=== PATIENT | male | born 1970 | race African-American/Black ===

== ENCOUNTER 2019-03-03 17:15 | Emergency (ER) | payer OTHER ==
[2019-03-03 17:20] VITALS: BMI 27.1
--- NOTE | 2019-03-03 17:51 | PDOC ---
Documentation entered by [place] River SCRIBE, acting as scribe for Angelina Shine MD. Angelina Shine MD: This documentation has been prepared by the Perico alicia Daniel, SCRIBE, under my direction and personally reviewed by me in its entirety. I confirm that the documentation accurately reflects all work, treatment, procedures, and medical decision making performed by me. History of Present Illness - General Chief Complaint: Blood Pressure Problem Stated Complaint: HYPERTENSION ( SENT FROM [facility]) Time Seen by Provider: 03/03/19 17:46 Past History - Past Medical History Allergies/Adverse Reactions: Allergies Allergy/AdvReac Type Severity Reaction Status Date / Time No Known Allergies Allergy Verified 03/03/19 17:20 Home Medications: Ambulatory Orders Metoprolol Succinate 25 mg PO DAILY 03/03/19 COPD: No HTN: Yes (NON COMPLIANT) - Psycho Social/Smoking Cessation Hx Smoking History: Never smoked *Physical Exam - Vital Signs Last Vital Signs Temp Pulse Resp BP Pulse Ox 97.5 F L 86 18 177/105 H 98 03/03/19 17:17 03/03/19 17:17 03/03/19 17:17 03/03/19 17:17 03/03/19 17:17 ED Treatment Course - LABORATORY CBC & Chemistry Diagram: 03/03/19 18:10 03/03/19 18:10 Discharge - Discharge Information Problems reviewed: Yes Clinical Impression/Diagnosis: Hypertension Qualifiers: Hypertension type: unspecified Qualified Code(s): I10 - Essential (primary) hypertension Condition: Stable Disposition: HOME - Follow up/Referral Referrals: Chas Arevalo MD [Staff Physician] - - Patient Discharge Instructions Patient Printed Discharge Instructions: DI for High Blood Pressure Additional Instructions: 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 If you experience any new, worsening, or concerning symptoms, please return to the emergency department. - Post Discharge Activity
[2019-03-03] MEDS ORDERED: ACETAMINOPHEN 500 MG TABLET (FP) PO ONE (18:12)
--- NOTE | 2019-03-03 18:24 | PDOC ---
Documentation entered by [place] SCRIBE, acting as scribe for Angelina Shine MD. Angelina Shine MD: This documentation has been prepared by the Perico alicia Daniel, SCRIBE, under my direction and personally reviewed by me in its entirety. I confirm that the documentation accurately reflects all work, treatment, procedures, and medical decision making performed by me. Attending Attestation - Resident Resident Name: Katia Wilkerson - ED Attending Attestation I have performed the following: I have examined & evaluated the patient, The case was reviewed & discussed with the resident, I agree w/resident's findings & plan, Exceptions are as noted - HPI HPI: 03/03/19 18:19 This 48-year-old male who has a long history of high blood pressure but is noncompliant with his medications noted his blood pressure to be 170/120 today and went to [facility] Also he notes that he has a history of a pituitary tumor and has not had that followed for the past year He was on metoprolol but has not filled the prescription for the past year 03/03/19 18:29 The patient is a 48 year old male with a past medical history of HTN (non compliant with meds) here today for evaluation of elevated blood pressure. The patient was sent from [facility] for a blood pressure of 170 systolic. Patient states that he ran out of his HTN medication 1 year ago and did not get it refilled. Patient currently complains of a right sided headache which he attributes to his humidifier being off and notes prior headaches due to this. Patient also reports that he has a pituitary mass which was diagnosed 2 years ago but has not followed up on it in the past year. Patient denies lightheadedness. Denies fever, chills. Denies chest pain, shortness of breath. Denies nausea, vomiting, diarrhea, abdominal pain. Allergies: NKA Social history: Denies tobacco, alcohol, or illicit drug use - Physicial Exam PE: 03/03/19 18:42 wnwd 48 yo male in no acute distress head ncat eyes sangeeta eomi neck supple lungs cta b/l cvs [id number] abdomen nontender skin warm and dry no flank pain neuro axox3,ambulatory - Medical Decision Making 03/03/19 18:24 pt states that he has h/o pitutary adenoma and HTN he has a mils rt sided headache but has not taken any OTC meds for it and he has no nausea,no vomiting,no visual changes or chest pain Plan is to give him his metoprolol, Tylenol for his right-sided headache and do a CAT scan CT without contrast I did speak to the provider at [facility] who saw him at 5:00 and the EKG that was done today was unchanged from the prior according to the [facility] provider 03/03/19 21:06 03/03/19 23:29 48-year-old male who is noncompliant with his blood pressure medicine for the past year came in because he was told his blood pressure is elevated No chest pain CAT scan was obtained because he mentions a history of a pituitary "" tumor CAT scan of the head was negative for any acute intracranial pathology 03/04/19 02:09 pt discharged home with a medicine referral
--- NOTE | 2019-03-03 18:31 | PDOC ---
History of Present Illness - General Chief Complaint: Blood Pressure Problem Stated Complaint: HYPERTENSION ( SENT FROM [facility]) Time Seen by Provider: 03/03/19 17:46 - History of Present Illness Initial Comments: 03/03/19 18:25 48 yo M PMH HTN, pituitary mass, presenting with high blood pressure. States that he has a blood pressure cuff at home which he checks occasionally, and he found it be 170s/ 110s. He went to [facility], where this pressure was confirmed, and then came to the ED. Specifically denies CP or SOB. Endorses a R sided headache which feels like pressure, no photophobia, phonophobia, or N/V, which he believes is due to not having his humidifier on. Reports that for the past year, every time his humidifier has been off, he has developed headaches. Patient states that he was on metoprolol 25 mg a year ago but has not seen a PCP or had this refilled. Further states that he was diagnosed with a pituitary mass approximately 2 years ago, which he has not had followed for over a year. Past History - Past Medical History Allergies/Adverse Reactions: Allergies Allergy/AdvReac Type Severity Reaction Status Date / Time No Known Allergies Allergy Verified 03/03/19 17:20 COPD: No HTN: Yes (NON COMPLIANT) - Psycho Social/Smoking Cessation Hx Smoking History: Never smoked Review of Systems - Review of Systems Comments:: 03/03/19 18:32 GENERAL/CONSTITUTIONAL: No fever or chills. No weakness. HEAD, EYES, EARS, NOSE AND THROAT: No change in vision. No ear pain or discharge. No sore throat. CARDIOVASCULAR: No chest pain or shortness of breath. RESPIRATORY: No cough, wheezing, or hemoptysis. GASTROINTESTINAL: No nausea, vomiting, diarrhea or constipation. GENITOURINARY: No dysuria, frequency, or change in urination. MUSCULOSKELETAL: No joint or muscle swelling or pain. No neck or back pain. SKIN: No rash NEUROLOGIC: R sided headache with pressure into the R eye. No vertigo, loss of consciousness, or change in strength/sensation. ENDOCRINE: No increased thirst. No abnormal weight change. HEMATOLOGIC/LYMPHATIC: No anemia, easy bleeding, or history of blood clots. ALLERGIC/IMMUNOLOGIC: No hives or skin allergy *Physical Exam - Vital Signs Last Vital Signs Temp Pulse Resp BP Pulse Ox 97.5 F L 86 18 177/105 H 98 03/03/19 17:17 03/03/19 17:17 03/03/19 17:17 03/03/19 17:17 03/03/19 17:17 - Physical Exam 03/03/19 18:34 Gen: well-developed, well-nourished, NAD Neuro: AAOX4, CN II-XII intact, FTN intact, EOMI, PERRLA, 5/5 strength, SILT HEENT: atraumatic, normocephalic, dry mucous membranes Neck: trachea midline, supple CV: regular rate, regular rhythm, no murmurs, rubs, or gallops Pulm: CTA b/l, no wheezing Abd: soft, non-distended, non-tender MSK: full ROM, intact pulses Extr: no edema, no deformities Skin: warm, dry ED Treatment Course - RADIOLOGY Radiology Studies Ordered: Category Date Time Status HEAD CT WITHOUT CONTRAST [CT] Stat CT Scan 03/03/19 18:12 Ordered Medical Decision Making - Medical Decision Making 03/03/19 18:31 Considering history of pituitary mass, FIELDS, and HTN: - CBC, CMP - EKG - CT head - 975 mg Tylenol - reassess 03/03/19 18:[address] scan performed 03/03/2017, showed hypoenhancing T2 hyperintense posterior midline R sided 3 to 4 mm pituitary microadenoma. Discharge - Discharge Information Problems reviewed: Yes - Follow up/Referral - Patient Discharge Instructions - Post Discharge Activity
[2019-03-03] MEDS ORDERED: ACETAMINOPHEN 325 MG TABLET (FP) ONE ×2 (18:54→19:09)
--- NOTE | 2019-03-03 19:03 | PDOC ---
*Physical Exam - Vital Signs Last Vital Signs Temp Pulse Resp BP Pulse Ox 97.5 F L 86 18 177/105 H 98 03/03/19 17:17 03/03/19 17:17 03/03/19 17:17 03/03/19 17:17 03/03/19 17:17 ED Treatment Course - LABORATORY CBC & Chemistry Diagram: 03/03/19 18:10 03/03/19 18:10 Medical Decision Making - Medical Decision Making 03/03/19 19:03 Pt received on sign out from Dr. Wilkerson. 48M with hx of HTN, medication non-compliance, pituitary mass, presents with elevated BP at home. Complaining of right sided headache. Labs, CT, EKG pending. Was supposed to be on amlodipine 25 mg but has not taken in over a year. 03/03/19 20:09 Will give HCTZ and metoprolol for BP. 03/03/19 20:11 Labs reviewed. Laboratory Tests 03/03/19 03/03/19 18:10 18:10 WBC 5.8 RBC 5.03 Hgb 14.5 Hct 43.7 MCV 86.8 MCH 28.8 MCHC 33.2 RDW 12.6 Plt Count 237 MPV 7.8 Absolute Neuts (auto) 3.3 Neutrophils % 57.8 Lymphocytes % 27.7 Monocytes % 11.4 H Eosinophils % 2.5 Basophils % 0.6 Nucleated RBC % 0 Sodium 139 Potassium 3.9 Chloride 102 Carbon Dioxide 30 Anion Gap 6 L BUN 10.6 Creatinine 1.1 Est GFR (CKD-EPI)AfAm 91.52 Est GFR (CKD-EPI)NonAf 78.96 Random Glucose 101 Calcium 9.3 Total Bilirubin 0.3 AST 35 ALT 56 Alkaline Phosphatase 55 Total Protein 8.2 Albumin 4.5 03/03/19 20:14 EKG shows NSR, 93 bpm, no axis deviation, no ST elevation/depression, QTc 447. 03/03/19 23:36 CT head shows no acute intra-cranial pathology. 03/03/19 23:45 Pt reassessed. BP 160/110 after meds. Resting comfortably. Plan to d/c home with PCP f/u. Patient education provided. Pt understands and agrees with plan. All questions answered. Return precautions given. Discharge - Discharge Information Problems reviewed: Yes Clinical Impression/Diagnosis: Hypertension Qualifiers: Hypertension type: unspecified Qualified Code(s): I10 - Essential (primary) hypertension Condition: Stable Disposition: HOME - Admission No - Follow up/Referral Referrals: Chas Arevalo MD [Staff Physician] - - Patient Discharge Instructions Patient Printed Discharge Instructions: DI for High Blood Pressure Additional Instructions: Please make a follow up appointment with a primary care doctor for [facility] management of your high blood pressure (referral provided here). If you experience any new, worsening, or concerning symptoms, please return to the emergency department. - Post Discharge Activity
[2019-03-03 19:26] LABS: BASO % 0.6 % (0-2.0); EOS % 2.5 % (0-4.5); HEMATOCRIT 43.7 % (35.4-49); HEMOGLOBIN 14.5 GM/dL (11.7-16.9); LYMPH % 27.7 % (8-40); MCH 28.8 pg (25.7-33.7); MCHC 33.2 g/dl (32.0-35.9); MEAN CELL VOLUME 86.8 fl (80-96); MEAN PLT VOLUME 7.8 fl (7.5-11.1); MONO % 11.4 % (3.8-10.2); NEUT % 57.8 % (42.8-82.8); PLATELET COUNT 237 K/MM3 (134-434); RBC 5.03 M/mm3 (4.00-5.60); RDW 12.6 % (11.9-15.9); WHITE BLOOD COUNT 5.8 K/mm3 (4.0-10.0)
[2019-03-03] MEDS ORDERED: HYDROCHLOROTHIAZIDE 25 MG TABLET (FP) PO ONE (19:46)
[2019-03-03] MEDS ORDERED: metoPROLOL SUCCINATE 25 MG TAB.SR.24H (FP) PO ONE (19:46)
[2019-03-03 20:03] LABS: ALBUMIN 4.5 g/dl (3.4-5.0); BILIRUBIN,TOTAL 0.3 mg/dL (0.2-1); BLOOD UREA NITROGEN 10.6 mg/dL (7-18); CALCIUM 9.3 mg/dL (8.5-10.1); CREATININE 1.1 mg/dL (0.55-1.3); POTASSIUM 3.9 mmol/L (3.5-5.1); TOT PROT 8.2 g/dl (6.4-8.2)
[2019-03-03] MEDS ORDERED: HYDROCHLOROTHIAZIDE 25 MG TABLET (FP) ONE (20:32)
[2019-03-04 00:21] VITALS: BP 160/109; PULSE 84; TEMP 98.1
--- NOTE | 2019-03-04 14:46 | EKG ---
Test Reason : Blood Pressure : / mmHG Vent. Rate : 093 BPM Atrial Rate : 093 BPM P-R Int : 160 ms QRS Dur : 094 ms QT Int : 360 ms P-R-T Axes : 024 043 -16 degrees QTc Int : 447 ms NORMAL SINUS RHYTHM SEPTAL INFARCT , AGE UNDETERMINED ABNORMAL ECG NO PREVIOUS ECGS AVAILABLE Confirmed by KELLI GUARDADO MD ([id number]) on 03/04/2019 2:46:32 PM Referred By: Confirmed By:KELLI GUARDADO MD
== END 2019-03-04 00:21 | disposition home or self-care (01) ==
LOC: JER 17:15
DX: I10 Essential (primary) hypertension (principal)
CPT/HCPCS: 36415; 70450-TC; 71045-TC-FY; 80053; 85025; 93005; 93010; 99282-25